=== PATIENT | female | born 1995 | race Caucasian/White ===

== ENCOUNTER 2020-03-23 13:28 | Emergency (ER) | payer MEDICAID ==
[2020-03-23] MEDS ORDERED: NORMAL SALINE 1000 ML 1,000 ML IV ONE ×2 (14:41→20:09)
[2020-03-23] MEDS ORDERED: LORAZEPAM INJ 2 MG/1 ML VIAL IV ONE ×3 (14:42→16:20)
[2020-03-23] MEDS ORDERED: PROMETHAZINE HCL 25 MG TABLET PO ONE (14:43)
[2020-03-23] MEDS ORDERED: IBUPROFEN 800 MG TABLET PO ONE (14:43)
[2020-03-23 14:48] LABS: ABSOLUTE EOSINOPHILS # (AUTO) 0.2 10^3/uL (0.0-0.6); ABSOLUTE MONOCYTES (AUTO) 0.4 10^3/uL (0.1-1.4); ABSOLUTE NEUT (AUTO) 5.5 10^3/uL (1.7-8.2); BASOPHILS % (AUTO) 0.4 % (0-2); EOSINOPHILS % (AUTO) 2.2 % (0-6); HEMATOCRIT 39.8 % (36.0-47.0); HEMOGLOBIN 13.7 g/dL (12.0-15.5); LYMPHOCYTES % (AUTO) 14.2 % (13-45); MEAN CORPUSCULAR HEMOGLOBIN 29.7 pg (27.0-33.4); MEAN CORPUSCULAR HGB CONC 34.5 g/dL (32.0-36.0); MEAN CORPUSCULAR VOLUME 86 fl (80-97); PLATELET COUNT 302 10^3/uL (150-450); RED BLOOD COUNT 4.62 10^6/uL (3.72-5.28); RED CELL DISTRIBUTION WIDTH 14.6 % (11.5-14.0); SEGMENTED NEUTROPHILS % (AUTO) 77.2 % (42-78); TOTAL CELLS COUNTED % (AUTO) 100 %; WHITE BLOOD COUNT 7.1 10^3/uL (4.0-10.5)
[2020-03-23 14:49] LABS: APPEARANCE,URINE SLIGHTLY-CLOUDY; BILIRUBIN,URINE NEGATIVE (NEGATIVE); COLOR,URINE YELLOW; GLUCOSE, URINE NEGATIVE (NEGATIVE); KETONES,URINE NEGATIVE (NEGATIVE); LEUKOCYTE ESTERASE,URINE NEGATIVE (NEGATIVE); NITRITE,URINE NEGATIVE (NEGATIVE); PROTEIN,URINE NEGATIVE (NEGATIVE); URINE SPECIFIC GRAVITY 1.011; UROBILINOGEN,URINE NEGATIVE mg/dL (<2.0)
[2020-03-23 14:58] LABS: ALBUMIN 4.5 g/dL (3.5-5.0); ALKALINE PHOSPHATASE 71 U/L (38-126); ANION GAP 7 (5-19); ASPARTATE AMINO TRANSFERASE 19 U/L (14-36); BILIRUBIN,TOTAL 0.6 mg/dL (0.2-1.3); BLOOD UREA NITROGEN 8 mg/dL (7-20); CALCIUM 9.9 mg/dL (8.4-10.2); CARBON DIOXIDE 23 mmol/L (22-30); CHLORIDE 107 mmol/L (98-107); GLUCOSE 118 mg/dL (75-110); POTASSIUM 3.8 mmol/L (3.6-5.0); TOTAL PROTEIN 7.8 g/dL (6.3-8.2)
[2020-03-23 15:01] LABS: ACETAMINOPHEN < 10 ug/mL (10-30); ALCOHOL < 10 mg/dL (NONE DETECTED); SALICYLATE < 1.0 mg/dL (2.0-20.0)
[2020-03-23 15:06] LABS: URINE AMPHETAMINES SCREEN NEGATIVE; URINE BARBITURATES SCREEN NEGATIVE; URINE BENZODIAZEPINES SCREEN NEGATIVE; URINE MARIJUANA (THC) SCREEN NEGATIVE; URINE METHADONE SCREEN NEGATIVE; URINE PHENCYCLIDINE SCREEN NEGATIVE
[2020-03-23] MEDS ORDERED: ZIPRASIDONE MESYLATE INJ/PF 20 MG SDV IM ONE ×2 (15:10→15:49)
[2020-03-23] MEDS ORDERED: DIPHENHYDRAMINE HCL 50 MG/ML VIAL IM ONE (15:10)
[2020-03-23 15:13] LABS: URINE COCAINE SCREEN UNCONFIRMED POSITIVE
--- NOTE | 2020-03-23 15:18 | RADIOLOGY REPORT (SQ) ---
EXAM DESCRIPTION: CHEST SINGLE VIEW IMAGES COMPLETED DATE/TIME: 03/23/2020 3:06 pm REASON FOR STUDY: substance abuse/withdrawal COMPARISON: None. EXAM PARAMETERS: NUMBER OF VIEWS: One view. TECHNIQUE: Single frontal radiographic view of the chest acquired. RADIATION DOSE: NA LIMITATIONS: None. FINDINGS: LUNGS AND PLEURA: No opacities, masses or pneumothorax. No pleural effusion. MEDIASTINUM AND HILAR STRUCTURES: No masses. Contour normal. HEART AND VASCULAR STRUCTURES: Heart normal in size. Normal vasculature. BONES: No acute findings. HARDWARE: None in the chest. OTHER: No other significant finding. IMPRESSION: NO ACUTE RADIOGRAPHIC FINDING IN THE CHEST. TECHNICAL DOCUMENTATION: JOB ID: [id number] 2010 [employer]- All Rights Reserved Reading location - IP/workstation name: [email or web address]
[2020-03-23] MEDS ORDERED: HALOPERIDOL LACTATE INJ 5 MG/1 ML VIAL IM SCH (17:45)
--- NOTE | 2020-03-23 18:26 | PSYCHOLOGICAL NOTE ---
Psych Note - Psych Note Date seen by psych provider: 03/23/20 Time seen by psych provider: 17:19 Psych Note: Reason for Consult: Withdrawal Patient is unable to engage in evaluation. She is currently in 4 pt restraints and talking to herself. Patient reportedly was attempting to detox off the heroin and took a Suboxone. Patient originally arrived orientated. It is not clear what the patient actually took prior to arrival. She reported taking heroin yesterday however toxicology indicates she is positive for cocaine. Patient is recommended for 24-hour petition for evaluation due to her impaired presentation; petition is signed and placed on patient's chart
--- NOTE | 2020-03-23 20:16 | ER Document Report ---
Entered by SOFÍA HANLEY SCRIBE 03/23/20 1446 Acting as scribe for:SEEMA BAEZ MD ED General - General Chief Complaint: Nausea Stated Complaint: NAUSEA/DIARRHEA/CHILLS/DRUG WITHDRAWL Information source: Patient Notes: This 24-year-old female presents to the emergency department complaining of heroin withdraw. Patient explains that she has been using cocaine through an IV for about a year and a half. Patient states that she went to the withdrawal clinic last week and got Suboxone. Patient is visiting with her family and had plans to go to the beach. Patient said that she usually takes a half a gram of cocaine every day but wanted to quit today. Patient said that she took her suboxone with no relief to her withdrawal symptoms. Patient reports feeling restless and nausea. Patient denies vomiting, suicide ideation, being and fever. - Related Data Allergies/Adverse Reactions: Penicillins Allergy (Verified 03/23/20 14:31) Past Medical History - General Information source: Patient - Social History Smoking Status: Current Every Day Smoker Cigarette use (# per day): Yes Chew tobacco use (# tins/day): No Frequency of alcohol use: Rare Drug Abuse: Cocaine, Heroin Family History: Reviewed & Not Pertinent Endocrine Medical History: Reports: Hx Hypothyroidism Surgical Hx: Negative Review of Systems - Review of Systems Constitutional: See HPI. denies: Fever EENT: No symptoms reported Cardiovascular: No symptoms reported Respiratory: No symptoms reported Gastrointestinal: See HPI, Nausea. denies: Vomiting Genitourinary: No symptoms reported Female Genitourinary: See HPI. denies: Musculoskeletal: No symptoms reported Skin: No symptoms reported Hematologic/Lymphatic: No symptoms reported Neurological/Psychological: See HPI. denies: Suicidal ideation -: Yes All other systems reviewed and negative Physical Exam - Vital signs Vitals: Temp Pulse Resp BP Pulse Ox 98.2 F 131 H 22 H 145/90 H 100 03/23/20 13:32 03/23/20 13:32 03/23/20 13:32 03/23/20 13:32 03/23/20 13:32 - Notes Notes: Physical Exam: General: Alert, appears restless. HEENT: Normocephalic. Atraumatic. PERRL. Extraocular movements intact. Oropharynx clear. Neck: Supple. Non-tender. Respiratory: No respiratory distress. Clear and equal breath sounds bilaterally. Cardiovascular: Regular rate and rhythm. Abdominal: Normal Inspection. Non-tender. No distension. Normal Bowel Sounds. Back: No gross abnormalities. Extremities: Moves all four extremities. Upper extremities: Normal inspection. Normal ROM. Lower extremities: Normal inspection. No edema. Normal ROM. Neurological: Normal cognition. AAOx4. Normal speech. Psychological: Restless. Skin: Warm. Dry. Normal color. Course - Re-evaluation Re-evalutation: 03/23/20 20:06 Patient agitated required multiple doses of sedative medications to have her behavior control. Currently patient is out of restraints at this time. - Vital Signs Vital signs: Temp Pulse Resp BP Pulse Ox 98.4 F 131 H 20 157/64 H 96 03/23/20 16:00 03/23/20 13:32 03/23/20 19:00 03/23/20 17:47 03/23/20 19:00 03/23/20 20:05 Vital signs shows a sinus tachycardia of 131. - Laboratory Result Diagrams: 03/23/20 13:54 03/23/20 13:54 Laboratory results interpreted by me: 03/23/20 03/23/20 13:54 13:54 RDW 14.6 H Glucose 118 H Salicylates < 1.0 L Acetaminophen < 10 L 03/23/20 20:06 Laboratory shows that there is cocaine in the urine drug screen otherwise no other tox screen noted. - Diagnostic Test Radiology reviewed: Image reviewed, Reports reviewed Radiology results interpreted by me: 03/23/20 20:07 Chest x-ray shows no acute process. - EKG Interpretation by Me Additional EKG results interpreted by me: 03/23/20 20:07 Twelve-lead EKG shows sinus tachycardia rate of 111 otherwise no acute process. Discharge - Discharge Clinical Impression: Substance abuse, Altered mental status, unspecified Disposition: PSYCH HOSP/UNIT I personally performed the services described in the documentation, reviewed and edited the documentation which was dictated to the scribe in my presence, and it accurately records my words and actions.
--- NOTE | 2020-03-23 21:52 | EKG REPORT ---
SEVERITY:- OTHERWISE NORMAL ECG - SINUS TACHYCARDIA : Confirmed by: Brittaney Chan MD 23-Mar-2020 21:51:02
--- NOTE | 2020-03-23 22:57 | RADIOLOGY REPORT (SQ) ---
EXAM DESCRIPTION: CT HEAD WITHOUT IV CONTRAST COMPLETED DATE/TME: 03/23/2020 20:10 CLINICAL HISTORY: 24 years, Female, altered mental status All CT scanners at this facility use dose modulation, iterative reconstruction, and/or weight based dosing when appropriate to reduce radiation dose to as low as reasonably achievable (ALARA). [facility]: Dose Right [facility]: CareDose [facility]: Dose Right [facility]: Teradose 4D [facility]: [employer]Computing LIMITATIONS: None. COMPARISON: None Available. Technique: Contiguous axial images of the brain were obtained without the administration of intravenous contrast. Coronal and sagittal reformats obtained and reviewed. This exam was performed according to our departmental dose-optimization program which includes use of Automated Exposure Control, adjustment of the mA and/or kV according to patient size and/or use of iterative reconstruction technique. Findings: Brain: No hemorrhage. No territorial infarct. No mass effect. No herniation. Ventricles: Within normal limits for patient's age. Bones: No acute osseous abnormality. Paranasal sinuses: Unremarkable. Mastoid air cells: Unremarkable. Soft tissues: No acute abnormality. IMPRESSION: No acute intracranial abnormalities. TECHNICAL DOCUMENTATION: Quality ID # [id number]: Final reports with documentation of one or more dose reduction techniques (e.g., Automated exposure control, adjustment of the mA and/or kV according to patient size, use of iterative reconstruction technique) copyright 2011 [employer]- All Rights Reserved
[2020-03-24] MEDS ORDERED: NORMAL SALINE 1000 ML 1,000 ML IV ONE (00:29)
[2020-03-24] MEDS ORDERED: DIAZEPAM 5 MG TABLET PO ONE (01:00)
[2020-03-24] MEDS ORDERED: DIPHENHYDRAMINE HCL 50 MG/ML VIAL IM ONE (02:56)
[2020-03-24] MEDS ORDERED: HALOPERIDOL LACTATE INJ 5 MG/1 ML VIAL IM ONE (02:56)
[2020-03-24] MEDS ORDERED: DIPHENHYDRAMINE HCL 50 MG/ML VIAL IV ONE (03:00)
[2020-03-24] MEDS ORDERED: CHLORPROMAZINE HCL INJ 25 MG/1 ML AMPULE IV ONE (04:16)
[2020-03-24] MEDS ORDERED: CHLORPROMAZINE HCL INJ 25 MG/1 ML AMPULE IM ONE ×2 (04:18→05:02)
[2020-03-24] MEDS ORDERED: LORAZEPAM INJ 2 MG/1 ML VIAL IV ONE (05:12)
[2020-03-24 08:36] VITALS: BP 135/86
[2020-03-24] MEDS ORDERED: BENZTROPINE MESYLATE 1 MG TABLET PO SCH (10:00)
== END 2020-03-24 12:09 | disposition home or self-care (01) ==
LOC: ER 13:28
DX: F11.23 Opioid dependence with withdrawal (principal); F14.20 Cocaine dependence, uncomplicated; R41.82 Altered mental status, unspecified; R11.0 Nausea; R19.7 Diarrhea, unspecified; R45.1 Restlessness and agitation; F17.210 Nicotine dependence, cigarettes, uncomplicated; Z88.0 Allergy status to penicillin
CPT/HCPCS: 93005; 96376; 99285; 96372; 96361; 96374; 36415; 82553; 80307 ×4; 82550; 84443; 85025; 81025; 80053; 81001; 84484; 71045; 70450; 93010; J3230; J3490 ×3; J1200 ×2; J1630; J2060 ×2; J3486; J7030 ×2